=== PATIENT | male | born 1985 | race African-American/Black ===

== ENCOUNTER 2021-01-22 15:07 | Emergency (ER) | payer OTHER ==
[~2021-01-22] VITALS: Ht 182.9 cm; Wt 106.8 kg
[2021-01-22] MEDS ORDERED: PROAIR HFA0.09 MG/AC IH (16:05)
[2021-01-22 16:30] LABS: COLLECTION METHOD CLEAN CATCH
[2021-01-22 16:37] LABS: MUCOUS Present /lpf; PH 6 (5-8); SQUAMOUS EPITHELIAL None Seen /hpf; URINE APPEARANCE Clear; URINE BACTERIA None Seen /hpf; URINE BILIRUBIN Negative (NEGATIVE); URINE BLOOD Negative (NEGATIVE); URINE COLOR Yellow; URINE GLUCOSE Negative (NEGATIVE); URINE KETONE Negative (NEGATIVE); URINE LEUKOCYTE ESTERASE Negative (NEGATIVE); URINE NITRATE Negative (NEGATIVE); URINE PROTEIN(semi-quant) Negative (NEGATIVE); URINE RBC 0-2 /hpf; URINE UROBILINOGEN Negative (NEGATIVE)
[2021-01-22 16:47] LABS: TRICYCLIC ANTIDEPRESS URINE NEGATIVE
[2021-01-22 17:23] LABS: BASO % 0.8 % (0.0-2.0); EOS % 0.8 % (0-4.0); GRAN # 2.8 (1.4-6.5); GRAN % 53.4 % (42.2-75.2); HEMATOCRIT 40.7 % (42.0-52.0); HEMOGLOBIN 13.5 g/dl (13.5-18.0); LYMPH # 2.1 (1.2-3.4); LYMPH % 39.3 % (20.0-51.0); MEAN CELL VOLUME 89 fl (80.0-100.0); MEAN CORPUSCULAR HEMOGLOBIN 29 pg (27.0-31.0); MEAN CORPUSCULAR HGB CONC 33 g/dl (33.0-37.0); MONO # 0.3 (0.1-0.6); MONO % 5.5 % (1.7-9.3); PLATELET COUNT 250 K/mm3 (130-400); RED BLOOD COUNT 4.59 M/mm3 (4.20-5.60); REDCELL DISTRIBUTION WIDTH-CV 13.2 % (11.5-14.5)
[2021-01-22 17:37] LABS: ALANINE AMINOTRANSFERASE 30 U/L (4-49); ALBUMIN 4.5 gm/dL (3.5-5.0); ALKALINE PHOSPHATASE 58 U/L (50-136); ANION GAP 9 mmol/L (7-16); AST,SGOT 25 U/L (15-37); BILIRUBIN,TOTAL 0.2 mg/dL (0.0-1.0); BLOOD UREA NITROGEN 12 mg/dL (9-20); CALCIUM 9.4 mg/dL (8.4-10.2); CARBON DIOXIDE 24 mmol/L (22-30); CHLORIDE 105 mmol/L (98-107); CREATININE, serum 1.12 (0.66-1.25); GLUCOSE 93 mg/dL (74-106); POTASSIUM 3.8 mmol/L (3.4-5.0); SODIUM 139 mmol/L (137-145); TOTAL PROTEIN 7.5 gm/dL (6.4-8.2)
[2021-01-22 17:41] LABS: ACETAMINOPHEN < 10 ug/mL (10-30); ALCOHOL(ethanol),MEDICAL < 10 mg/dL; SALICYLATE < 1.0 mg/dL
[2021-01-22 18:26] LABS: TSH w REFLEX 1.435 uIU/mL (0.350-4.940)
[2021-01-23 00:30] VITALS: BP 134/85; PULSE 56; TEMP 98
== END 2021-01-23 00:30 ==
LOC: COL.ER 15:07
PROVIDERS: Nurse Practitioner Primary Care
DX: R45.850 Homicidal ideations (principal); J45.909 Unspecified asthma, uncomplicated; Z79.899 Other long term (current) drug therapy; Z20.822 Contact with and (suspected) exposure to COVID-19